=== PATIENT | female | born 1980 | race Hispanic/Latino ===

== ENCOUNTER → 2017-12-06 | Day surgery (SDC) | payer MEDICARE ==
[~2017-12-06] MED LIST: ABILIFY10 MG PO; CELEXA20 MG PO; CLONAZEPAM1 MG PO; DEPAKOTE500 MG PO; FENTANYL CITRATE/PF 100MCG/2 ML INJ ONE; IRON INFUSION IV; LAMOTRIGINE200 MG PO; MIDAZOLAM HCL 2 MG/2 ML VIAL ONE; PROPOFOL IV EMULSION 10 MG/ML 50 ML VIAL ONE; SEROQUEL25 MG PO; TOPAMAX25 MG PO
== END | disposition home or self-care (01) ==
LOC: OR 08:04
PROVIDERS: ATTEND Internal Medicine Gastroenterology
DX: K92.1 Melena (principal); Z98.84 Bariatric surgery status; K21.9 Gastro-esophageal reflux disease without esophagitis; K44.9 Diaphragmatic hernia without obstruction or gangrene; K85.90 Acute pancreatitis without necrosis or infection, unspecified; K59.00 Constipation, unspecified; I10 Essential (primary) hypertension; E66.01 Morbid (severe) obesity due to excess calories; G40.909 Epilepsy, unspecified, not intractable, without status epilepticus; F43.10 Post-traumatic stress disorder, unspecified; F41.9 Anxiety disorder, unspecified; F31.9 Bipolar disorder, unspecified; Z68.44 Body mass index [BMI] 60.0-69.9, adult
CPT/HCPCS: 43239; 81025; J2250

== ENCOUNTER 2017-12-10 03:46 | Emergency (ER) | payer MEDICARE ==
[~2017-12-10] VITALS: Ht 165.1 cm; Wt 170.1 kg
[~2017-12-10 03:46] MED LIST changes: -FENTANYL CITRATE/PF 100MCG/2 ML INJ ONE; -MIDAZOLAM HCL 2 MG/2 ML VIAL ONE; -PROPOFOL IV EMULSION 10 MG/ML 50 ML VIAL ONE
[2017-12-10] MEDS ORDERED: KETOROLAC TROMETHAMINE 30 MG/ML VIAL IV STA (04:04)
[2017-12-10 04:21] LABS: BASOPHILS # (AUTO) 0.1 (0.0-0.1); BASOPHILS % 0.9 % (0.0-1.0); EOSINOPHILS # (AUTO) 0.3 (0.0-0.4); HEMATOCRIT 34.9 % (34.2-44.1); HEMOGLOBIN 10.6 g/dL (12.0-16.0); LYMPHOCYTES # (AUTO) 2.6 (1.0-3.2); LYMPHOCYTES % 29.6 % (18.0-39.1); MEAN CORPUSCULAR HEMOGLOBIN 23.7 pg (28-32); MEAN CORPUSCULAR HGB CONC 30.4 g/dL (31-35); MEAN CORPUSCULAR VOLUME 78.1 fL (81-99); MONOCYTES # (AUTO) 0.9 (0.2-0.8); MONOCYTES % 9.6 % (4.4-11.3); NEUTROPHILS % 56.6 % (38.7-80.0); PLATELET COUNT 278 x10e3/uL (140-360); RED BLOOD COUNT 4.47 x10e6/uL (3.6-5.1); RED CELL DISTRIBUTION WIDTH 16.9 % (11.7-14.4)
[2017-12-10 04:41] LABS: ALANINE AMINOTRANSFERASE 10 IU/L (0-55); ALBUMIN 3.6 g/dL (3.5-5.0); ALBUMIN/GLOBULIN RATIO 0.8 (0.8-2.0); ALKALINE PHOSPHATASE 95 IU/L (40-150); ANION GAP 10.9 mmol/L (8-16); BLOOD UREA NITROGEN 10 mg/dL (7-26); BUN/CREATININE RATIO 15 (6-25); CALCIUM 9.4 mg/dL (8.4-10.2); CARBON DIOXIDE 24 mmol/L (22-29); CHLORIDE 100 mmol/L (98-107); CREATINE KINASE 71 IU/L (29-168); CREATININE, SERUM 0.68 mg/dL (0.57-1.11); EST GLOMERULAR FILTRATION RATE > 60 ML/MIN (60-); GLUCOSE 108 mg/dL (74-118); POTASSIUM 3.9 mmol/L (3.5-5.1); SODIUM 131 mmol/L (136-145)
--- NOTE | 2017-12-10 04:59 | Diagnostic Imaging Report ---
EXAM: CHEST 2 VIEWS, PA and lateral INDICATION: Chest pain, shortness of breath COMPARISON: None FINDINGS: LINES/TUBES: None LUNGS: No consolidations or edema. PLEURA: No effusions or pneumothorax. HEART AND MEDIASTINUM: Normal size and contour. BONES AND SOFT TISSUES: No acute findings. IMPRESSION: No acute thoracic abnormality. Signed by: Dr. Lisa Jones M.D. on 12/10/2017 4:55 AM
[2017-12-10 05:21] VITALS: BP 94/52
== END 2017-12-10 05:40 | disposition home or self-care (01) ==
LOC: ER 03:46
DX: R07.89 Other chest pain (principal); F31.9 Bipolar disorder, unspecified; D64.9 Anemia, unspecified
CPT/HCPCS: 99284; J1885

== ENCOUNTER → 2018-01-03 | Day surgery (SDC) | payer MEDICARE ==
[~2018-01-03] MED LIST changes: +ALEVE220 M1 PO; +FENTANYL CITRATE/PF 100MCG/2 ML INJ ONE; +MIDAZOLAM HCL 2 MG/2 ML VIAL ONE; +PROPOFOL IV EMULSION 10 MG/ML 50 ML VIAL ONE
== END | disposition home or self-care (01) ==
LOC: OR 09:01
PROVIDERS: ATTEND Internal Medicine Gastroenterology
DX: K92.1 Melena (principal); K64.1 Second degree hemorrhoids; K21.9 Gastro-esophageal reflux disease without esophagitis; Z98.84 Bariatric surgery status; I10 Essential (primary) hypertension; K44.9 Diaphragmatic hernia without obstruction or gangrene; G40.909 Epilepsy, unspecified, not intractable, without status epilepticus; E66.01 Morbid (severe) obesity due to excess calories; F31.9 Bipolar disorder, unspecified; F43.10 Post-traumatic stress disorder, unspecified; Z68.44 Body mass index [BMI] 60.0-69.9, adult
CPT/HCPCS: 45378; 81025; J2250

== ENCOUNTER 2018-03-15 12:56 | Emergency (ER) | payer MEDICARE ==
[~2018-03-15] VITALS: Ht 165.1 cm; Wt 170.1 kg
[~2018-03-15 12:56] MED LIST changes: -FENTANYL CITRATE/PF 100MCG/2 ML INJ ONE; -MIDAZOLAM HCL 2 MG/2 ML VIAL ONE; -PROPOFOL IV EMULSION 10 MG/ML 50 ML VIAL ONE
[2018-03-15] MEDS ORDERED: HYDROCODONE/APAP 10MG-325MG TAB PO ONE (13:00)
--- NOTE | 2018-03-15 13:43 | Diagnostic Imaging Report ---
PROCEDURE:X-RAY RIGHT KNEE, THREE OR MORE VIEWS COMPARISON:None. INDICATIONS:RIGHT KNEE PAIN FINDINGS: There are no fractures, subluxations, lytic or blastic lesions. There is no evidence of a joint effusion. There are mild tricompartmental degenerative changes with joint space narrowing and bony osteophyte formation. 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 No acute osseous abnormality. Dictated by: BOBBI OLIVA M.D. on 03/15/2018 at 13:49 Electronically approved by: BOBBI OLIVA M.D. on 03/15/2018 at 13:49
== END 2018-03-15 14:26 | disposition home or self-care (01) ==
LOC: ER 12:56
DX: M25.561 Pain in right knee (principal); S83.91XA Sprain of unspecified site of right knee, initial encounter; W01.0XXA Fall on same level from slipping, tripping and stumbling without subsequent striking against object, initial encounter; E66.9 Obesity, unspecified; F41.9 Anxiety disorder, unspecified; F31.9 Bipolar disorder, unspecified; K21.9 Gastro-esophageal reflux disease without esophagitis
CPT/HCPCS: 99283

== ENCOUNTER → 2018-04-12 | Day surgery (SDC) | payer MEDICARE ==
[~2018-04-12] MED LIST changes: +BUPIVACAINE 0.5%/EPI 30 ML SDV INJ ONE; +CEFAZOLIN SOD 2 GM/D5W 50ML 50 ML IV ONE; +DEXAMETHASONE SOD PHOS INJ 4 MG/ML VIAL ONE; +FENTANYL CITRATE/PF 100MCG/2 ML INJ ONE; +KETOROLAC TROMETHAMINE 30 MG/ML VIAL ONE; +MIDAZOLAM HCL 2 MG/2 ML VIAL ONE; +ONDANSETRON HCL INJ 2 MG/ML VIAL ONE; +PAXIL40 MG PO; +PROPOFOL IV EMULSION 10 MG/ML 20 ML VIAL ONE; +SEVOFLURANE INHAL SOLN 250 ML PEN BTL ONE; +SUCCINYLCHOLINE 200 MG/10 ML SYR ONE
[2018-04-12 10:15] VITALS: BP 123/74
--- NOTE | 2018-04-13 13:57 | Operative Report ---
DATE OF PROCEDURE: April 12, 2018 PREOPERATIVE DIAGNOSES 1. Right knee medial meniscus tear. 2. Right knee degenerative joint disease of the knee. POSTOPERATIVE DIAGNOSES 1. Right knee medial meniscus tear. 2. Right knee degenerative joint disease of the knee. 3. Right knee intra-articular loose body. PROCEDURES PERFORMED 1. Right knee examination under anesthesia. 2. Right knee arthroscopy. 3. Right knee partial medial meniscectomy. 4. Right knee chondroplasty of the patella, the trochlea, the medial femoral condyle, the medial tibial plateau and the lateral tibial plateau. 5. Removal of an intra-articular loose body from the medial compartment. TEACHING SPECIALISTS: None. ANESTHESIA: General endotracheal intubation anesthesia. IV FLUIDS: Per the anesthesia record. DESCRIPTION OF PROCEDURE: Ms. Hogan was taken to the operating room and placed in the supine position on the operating table. Following induction of general anesthesia as well as endotracheal intubation, the patient's right lower extremity was examined under anesthesia. She was found to have no gross abnormalities of the knee joint. The patient's lower extremity was prepped and draped in the standard surgical fashion. A 2-portal technique was used to provide this patient arthroscopic evaluation of the knee joint. Examination of the suprapatellar pouch, medial and lateral gutters found no evidence of loose bodies. There was, however, evidence of chondromalacia of the patella and trochlear surfaces. The scope was advanced in the medial compartment, and examination of the medial compartment demonstrated a torn medial meniscus. There was chondromalacia of the articulating surfaces. During the partial meniscectomy, an intra-articular loose body floated into the medial compartment and was removed using a grasper. The partial meniscectomy was completed using a shaver and biting forceps. Chondroplasties of the medial femoral condyle and medial tibial plateau were performed at this time. Scope was then advanced into the intercondylar notch, and the anterior cruciate ligament was identified and found to be intact. The scope was then placed in the lateral compartment, and chondromalacia of the lateral tibial plateau was encountered. A shaver was used to provide this surface a chondroplasty. The shaver was then placed in the patellofemoral joint. Chondroplasty of the patella and trochlea was performed. The knee was then deflated of its sterile normal saline. Each of portal sites were closed using 4-0 nylon suture. The portal sites as well as the knee itself were then injected with 0.5% Marcaine with epinephrine. Sterile dressings were applied. The patient was awakened and taken to the postanesthesia care unit in stable condition. Job#: [id number]
== END | disposition home or self-care (01) ==
LOC: OR 06:40
PROVIDERS: ATTEND Specialist
DX: S83.221A Peripheral tear of medial meniscus, current injury, right knee, initial encounter (principal); M17.11 Unilateral primary osteoarthritis, right knee; M23.41 Loose body in knee, right knee; M22.41 Chondromalacia patellae, right knee; G47.33 Obstructive sleep apnea (adult) (pediatric); G40.909 Epilepsy, unspecified, not intractable, without status epilepticus; G43.909 Migraine, unspecified, not intractable, without status migrainosus; F43.10 Post-traumatic stress disorder, unspecified; F41.9 Anxiety disorder, unspecified; F31.9 Bipolar disorder, unspecified; Z68.44 Body mass index [BMI] 60.0-69.9, adult
CPT/HCPCS: 81025; 29881; J1100; J1885; J2250; J2405